=== PATIENT | female | born 1990 | race African-American/Black ===

== ENCOUNTER 2016-08-23 22:33 | Emergency (ER) | payer OTHER ==
[~2016-08-23] VITALS: Ht 147.3 cm; Wt 93.4 kg
[~2016-08-23 22:33] MED LIST: BENTYL 10 MG CA10 MG PO; BENTYL20 MG PO; CLARITIN10 MG PO; DOXYCYCLINE 10100 MG PO; FLAGYL500 MG PO; FLONASE NS; IBUPROFEN 800800 MG PO; NAPROSYN500 MG PO; NOHOMEMEDICATIONS; NORCO 5-325 TA1 EACH PO; PHENERGAN 25 MG25 MG PO; PHENERGAN25 MG RE; PREDNISONE50 MG PO; PRENATAL COMPL1 EACH PO; PROAIR HFA8.5 GM IH; PROVENTIL; PROVENTIL HFA6.7 G1 INH; ZOFRAN 4 MG ORAL4 M1 DIS; ZOFRAN ODT4 MG PO; no home meds
[2016-08-23] MEDS ORDERED: VENTOLIN HFA 1818 GM INH (22:36)
[2016-08-23 22:47] LABS: URINE BILIRUBIN NEGATIVE (Negative); URINE BLOOD NEGATIVE (Negative); URINE COLOR YELLOW; URINE GLUCOSE-RANDOM* NEGATIVE (Negative); URINE KETONES NEGATIVE (Negative); URINE LEUKOCYTES-REFLEX NEGATIVE (Negative); URINE PROTEIN (DIPSTICK) NEGATIVE (Negative)
[2016-08-23 23:27] LABS: ABSOLUTE NEUTROPHILS 6.1 thou/uL (1.4-8.2); BASOPHILS 0.6 % (0.0-2.0); EOSINOPHILS 0.4 % (0.0-3.0); HEMATOCRIT 31.6 % (37.0-47.0); HEMOGLOBIN 9.9 gm/dL (12.0-15.0); LYMPHOCYTES 33.6 % (24.0-44.0); MCH 24.1 pg (26.0-34.0); MCHC 31.4 g/dL (28.0-37.0); MCV 76.6 fL (80.0-100.0); MONOCYTES 5.2 % (1.0-8.0); PLATELET COUNT 298 thou/uL (150-400); POLYS 60.2 % (36.0-66.0); RBC 4.12 mil/uL (4.20-5.00); RDW 17.2 % (10.5-14.5); WBC 10.1 thou/uL (4.0-11.0)
[2016-08-23 23:29] LABS: MANUAL DIFF NO
[2016-08-23 23:35] LABS: CREATININE 0.7 mg/dL (0.6-1.3); POTASSIUM 3.7 mmol/L (3.5-5.1)
[2016-08-23] MEDS ORDERED: FLAGYL500 MG PO (23:52)
[2016-08-23] MEDS ORDERED: IRON325 PO (23:52)
[2016-08-23] MEDS ORDERED: NAPROSYN500 MG PO (23:55)
[2016-08-24 00:07] VITALS: BP 146/83
[2016-08-27 16:09] LABS: CHLAMYDIA TRACHOMATIS-PCR Negative (Negative); NEISSERIA GONORRHEA-PCR Negative (Negative)
== END 2016-08-24 00:09 | disposition home or self-care (01) ==
LOC: ER 22:33
PROVIDERS: Physician Assistant
DX: N76.0 Acute vaginitis (principal); D64.9 Anemia, unspecified; J45.909 Unspecified asthma, uncomplicated; Z88.8 Allergy status to other drugs, medicaments and biological substances